=== PATIENT | male | born 1950 | race Caucasian/White ===

== ENCOUNTER 2017-01-12 05:25 | Day surgery (SDC) | payer OTHER ==
[~2017-01-12] VITALS: Ht 177.8 cm; Wt 88.5 kg
--- NOTE | ~2017-01-12 | O ---
[facility] [address] [place] [address] OPERATIVE REPORT Name: FRANCA HUANG Room #: 150-3 [employer] M.R.#: [id number] Admission: 01/12/17 Attend Phys: Lukasz uJarez MD Discharge: Date of : 52 Report #: [id number] THIS REPORT FOR: //name// CC: Lukasz Boyce DATE OF SERVICE: 01/12/2017 PREOPERATIVE DIAGNOSIS: Right knee retained hardware. POSTOPERATIVE DIAGNOSIS: Right knee retained hardware. PROCEDURE: 1. Right knee hardware removal. 2. Application of allograft. HORTICULTURE WORKER: Jason Burgess, nurse practitioner. INDICATIONS FOR HORTICULTURE WORKER: During the course of operation, extensive manipulation, retraction and limb positioning was required. This was afforded to me by my digital sales assistant. ANESTHETIC: General. INDICATIONS: See hospital H and P. DESCRIPTION OF PROCEDURE: After adequate general anesthesia had been obtained, the patient's right lower extremity was prepped and draped in the usual meticulous sterile fashion. Limb was exsanguinated with gravity, tourniquet inflated to 300 torr. His previously made incision was reutilized and opened sharply and elevated at medial flap to expose the area of the hardware along the patella and proximal tibia. A small incision was made in the retinaculum adjacent to the patella. Rongeur was used to remove the bone overgrowth on the patella screws. These were then removed and irrigated copiously. Attention was directed to the interference screw and the david on the tibia. These 3 david and the interference screw were exposed using osteotome and then, the staple removal device was used to remove the david and a screw [employer] truck driver used to remove the screw. The wound was then irrigated copiously. At this time, we elected to use the Pro-Dense graft to backfill the holes to lower the risk of fracture. The Pro-Dense was reconstituted and was mixed and then, the areas to be bone grafted were suctioned dried and Pro-Dense was then placed into all 3 screw holes on the patella as well as used to backfill [address] [address] OPERATIVE REPORT Name: FRANCA HUANG Room #: 150-3 [employer] M.R.#: [id number] Admission: 01/12/17 Attend Phys: Lukasz Juarez MD Discharge: Date of : 52 Report #: [id number] the interference screw and staple holes and some was placed on the surface as well. It was held in place until it cured. The wounds were irrigated copiously. The retinaculum and grafts were reapproximated with #1 Vicryl, subQ closed with 2-0 Monocryl, skin closed with david. Sterile compressive dressing was complied. Tourniquet deflated. By: 0919 [id number] Lukasz Juarez MD /nt
[~2017-01-12 05:25] MED LIST: FISH OIL OMEGA1 EAC3 PO; FLOMAX0.4 MG PO; LEVOTHYROXIN0.137 M1 PO; MULTI VITAMIN1 EACH PO; ZOCOR20 MG PO
[2017-01-12 07:00] VITALS: BP 134/82
[2017-01-12 09:41] VITALS: BP 134/82
== END 2017-01-12 11:15 | disposition home or self-care (01) ==
LOC: EDSEX → OR 05:25 → TBA 05:25 → OR 11:05
DX: Z47.2 Encounter for removal of internal fixation device (principal); G47.33 Obstructive sleep apnea (adult) (pediatric); Z85.038 Personal history of other malignant neoplasm of large intestine
CPT/HCPCS: 50010; 50101; 50386; 51320; 51412; 52001; 52282; 55430; 56525; 57091; 62110; 62900; 70005

== ENCOUNTER 2017-05-02 05:23 | Inpatient (IN) | payer OTHER | END 2017-05-05 15:41 | disposition home health service (06) | DRG 470 | LOC: TBA 05:23 → 4N 10:09 | PROC: 0SRC0J9 Replacement of Right Knee Joint with Synthetic Substitute, Cemented, Open Approach (ICD-10-PCS; principal; 2017-05-02) | PROC: 3E0T3BZ Introduction of Anesthetic Agent into Peripheral Nerves and Plexi, Percutaneous Approach (ICD-10-PCS; 2017-05-02) | DX: M17.11 Unilateral primary osteoarthritis, right knee (principal); E03.9 Hypothyroidism, unspecified; E78.5 Hyperlipidemia, unspecified; N40.0 Benign prostatic hyperplasia without lower urinary tract symptoms; I10 Essential (primary) hypertension; Z85.048 Personal history of other malignant neoplasm of rectum, rectosigmoid junction, and anus; Z90.49 Acquired absence of other specified parts of digestive tract; Z82.49 Family history of ischemic heart disease and other diseases of the circulatory system ==